=== PATIENT | male | born 2005 | race Hispanic/Latino ===

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

== ENCOUNTER 2024-04-27 17:01 | Emergency (ER) | payer BC ==
[~2024-04-27 17:01] MED LIST: Iopamidol-370 76% 500 ML MDV (1 ML CHARGE) ONE
[2024-04-27] MEDS ORDERED: Ketorolac Tromethamine 30 MG (1 mL) VIAL ONE ×2 (18:07→18:08)
[2024-04-27] MEDS ORDERED: Ondansetron PF 4 MG/2 ML Vial ONE (18:07)
[2024-04-27] MEDS ORDERED: Acetaminophen 500 MG TAB ONE (18:07)
[2024-04-27 18:11] LABS: #Basophils 0.03 10x3/uL (0.0-0.2); #Eosinphils Less than 0.03 10x3/uL (0.0-0.7); %Basophils 0.3 % (0.0-1.0); %Eosinophils 0.2 % (0.0-10.0); %Lymphocytes 12.1 % (28.0-48.0); %Monocytes 14.1 % (0.0-4.0); %Neutrophils 72.8 % (31.0-61.0); Hematocrit 46.2 % (42.0-52.0); Hemoglobin 15.7 g/dL (14.0-18.0); Mean Corpuscular Volume 85.4 fL (78.0-98.0); Mean Platelet Volume 11.1 fL (7.4-10.4); Platelet Count 227 10x3/uL (130-400); RBC Distribution Width 11.9 % (11.5-14.5); Red Blood Cell (RBC) Count 5.41 mill/uL (4.00-5.20)
[2024-04-27 18:24] LABS: ALT (SGPT) 31 U/L (8-55); AST (SGOT) 25 U/L (5-34); Albumin 3.9 g/dL (3.5-5.0); Alkaline Phosphatase 91 U/L (50-130); Anion Gap 16 mmol/L (10-20); BUN (Urea Nitrogen) 6 mg/dL (8.9-20.6); Bilirubin, Total 0.8 mg/dL (0.2-1.2); Calc. Creatinine Clearance 0 mL/min (70-130); Calcium 9.9 mg/dL (7.8-10.44); Carbon Dioxide 25 mmol/L (22-29); Chloride 98 mmol/L (98-107); Estimated GFR 99; Globulin 4.1 g/dL (2.4-3.5); Glucose 100 mg/dL (70-105); Lipase 31 U/L (8-78); Potassium 3.6 mmol/L (3.5-5.1); Sodium 135 mmol/L (136-145)
[2024-04-27] MEDS ORDERED: Piperacillin/Tazobactam 4.5 GM VIAL ONE (18:38)
[2024-04-27] MEDS ORDERED: Sodium Chloride 0.9% 100 ML ONE (18:39)
== END 2024-04-27 20:32 | disposition home or self-care (01) ==
LOC: ERS 17:01
DX: K52.9 Noninfective gastroenteritis and colitis, unspecified (principal)
CPT/HCPCS: 36415; 74177; 80053; 83605; 83690; 85025; 87040; 96374; 96375; J1885; J2405; J2543; J3490; Q9967